=== PATIENT | female | born 1970 | race Caucasian/White ===

== ENCOUNTER 2021-09-05 21:43 | Emergency (ER) | payer SELFPAY ==
[~2021-09-05] VITALS: Ht 167.6 cm; Wt 74.8 kg
[~2021-09-05 21:43] MED LIST: ALBU90OI INH; CODGUAEL PO; COMPOUNDED THYROID; CRUTCH4 USE; CYCL10 PO; HYDACE10B PO; HYDACE5 PO; LEVSOD75 PO; MULVITMINE PO; NAPR500 PO; PREN-16 PO; PROG100 PO; SERT25; TRAM50 PO; Unithroid75 MCG PO; VITAMINS
[2021-09-06 00:05] LABS: SARS-Cov-2 (COVID-19) PCR, MMC POSITIVE (NEGATIVE)
== END 2021-09-06 02:30 | disposition home or self-care (01) ==
LOC: ER 21:43
PROVIDERS: Emergency Medicine
DX: U07.1 COVID-19 (principal); E03.9 Hypothyroidism, unspecified; Z88.0 Allergy status to penicillin; Z88.1 Allergy status to other antibiotic agents; Z79.899 Other long term (current) drug therapy
CPT/HCPCS: A9270; Q0243; U0004

== ENCOUNTER → 2022-09-11 | Outpatient (CLI) | payer SELFPAY | END | disposition home or self-care (01) | LOC: LAB 10:55 → LAB SHORT 10:55 | DX: J02.9 Acute pharyngitis, unspecified (principal) | CPT/HCPCS: 87081 ==

== ENCOUNTER → 2024-06-06 | Outpatient (CLI) | payer OTHER | LOC: LAB 09:15 → LAB SHORT 09:15 | DX: N95.0 Postmenopausal bleeding (principal) | CPT/HCPCS: 88305 ==